=== PATIENT | female | born 1940 | race American Indian/Alaskan Native ===

== ENCOUNTER 2018-11-30 21:47 | Emergency (ER) | payer MEDICARE, OTHER, SELFPAY ==
[2018-11-30 21:47] VITALS: BP 51/33; PULSE 93; RESP 28; O2SAT 85
--- NOTE | 2018-11-30 21:57 | DI.RAD.S_ITS ---
PROCEDURE: XR CHEST 1V INDICATIONS: hypotensivelung cancer TECHNIQUE: One view of the chest was acquired. COMPARISON: [facility], CR, XR CHEST 1 VIEW, 10/10/2018, 11:35. [facility], CR, CHEST 1 VIEW, 03/10/2017, 16:46. FINDINGS: Surgical changes and devices: Right Port-A-Cath is present with distal tip projecting over the right atrial junction, unchanged. Lungs and pleura: The mild right effusion. Persistent right upper lobe/perihilar opacity is unchanged. Mild left effusion. Mediastinum: Mediastinal contours appear normal. Heart size is normal. Bones and chest wall: No suspicious bony lesions. Overlying soft tissues appear unremarkable. IMPRESSION: Mild right effusion slightly increased compared to prior exam. Minimal to mild left effusion. Unchanged right upper lobe/perihilar opacity. Dictated by: Lisa Ortega M.D. on 12/01/2018 at 7:48 Approved by: Lisa Ortega M.D. on 12/01/2018 at 7:51
[2018-11-30 21:58] VITALS: BP 56/47; PULSE 104; RESP 26; TEMP 35.6
[2018-11-30 22:00] VITALS: BP 40/15; PULSE 56; RESP 28; O2SAT 97
[2018-11-30] MEDS: SODIUM CHLORIDE 0.9% 1,000 ML 1000 ML IV (22:05)
--- NOTE | 2018-11-30 22:15 | ED.ABDPAIN ---
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 states that she was doing well yesterday and even this morning. He made her go get her influenza shot today at around noon. Patient went home and started to become very weak and confused and deteriorating. says that her speech is slurred concerned that there may be a stroke. She had numbness and tingling in both lower hand. She actually looks quite pale and has initial blood pressure of 50. Some nausea and vomiting. says that the vomit looks like all coffee grounds he attributed that to coffee was only thing she drank this morning. She has vomited and felt nauseous throughout the day apparently. She is unable to give me much history most history comes from family daughter and at bedside. Related Data Home Medications Medication Instructions Recorded Confirmed [CENTRUM SILVER] 1 tab PO QDAY #0 03/10/17 aspirin #0 03/10/17 cholecalciferol (vitamin D3) 1,000 unit PO QDAY #0 03/10/17 [Vitamin D3] felodipine 10 mg PO QDAY #0 03/10/17 fluticasone propionate [Flonase 1 spray INTRANASAL QDAY #0 03/10/17 Allergy Relief] hydrochlorothiazide 50 mg PO QDAY #0 03/10/17 lisinopril 20 mg PO BID #0 03/10/17 loratadine 10 mg PO QDAY PRN #0 03/10/17 metoprolol succinate [Toprol XL] 50 mg PO QDAY #0 03/10/17 naproxen sodium [Aleve] 220 mg PO BIDCC PRN #0 03/10/17 omeprazole 20 mg PO QDAY #0 03/10/17 Allergies Allergy/AdvReac Type Severity Reaction Status Date / Time No Known Allergies Allergy Uncoded 05/17/17 12:49 Review of Systems Review of Systems ROS Unobtainable: Unobtainable due to medical condition Patient History Medical History DVT (deep venous thrombosis) (Acute) Lung cancer (Acute) Social History marital status: household members: spouse Smoking Status: Never smoker Substance Use Type: does not use Exam Initial Vital Signs Initial Vital Signs: Vital Signs Pulse Rate 93 H 11/30/18 21:47 Respiratory Rate 28 H 11/30/18 21:47 Blood Pressure 51/33 L 11/30/18 21:47 Pulse Oximetry 85 L 11/30/18 21:47 Gen.: Week pale alert female HEENT: Head is atraumatic, dry mucous membranes, EOMI Neck: No meningeal signs neck is supple no JVD Lungs: Clear bilaterally no respiratory distress no tachypnea Cardiac: Regular rate no murmurs Abdomen: Slightly distended normal bowel sounds nontender soft Extremities: Moves all extremities peripheral pulses intact Neurologic: Awake can follow commands, no facial drooping sieve repairer strength equal bilaterally Course Orders Ordered: ED Orders 11/30/18 21:57 XR chest 1V Stat Blood Culture Stat 11/30/18 22:06 Complete Blood Count AUTO DIFF Stat Comprehensive Metabolic Panel Stat Discontinued Medications Sodium Chloride (Normal Saline 0.9%) 1,000 mls @ 1,000 mls/hr IV CONT ALEJANDRA Last Infusion: 11/30/18 23:17 Dose: 0 mls/hr Documented by: Admin: 11/30/18 22:05 Dose: 1,000 mls/hr Documented by: JOSEPH Consultations Consultation #1: Dr. Guo, on-call for surgery updated on patient's symptoms and test results. Please with no aggressive measures to be taken. Time: 22:26 Vital Signs Vital signs: Vital Signs - 8 hr 11/30/18 21:47 11/30/18 21:58 11/30/18 22:00 Temperature 96.1 F L Pulse Rate 93 H 104 H 56 L Respiratory Rate 28 H 26 H 28 H Blood Pressure 56/47 L Blood Pressure [Right Arm] 51/33 L 40/15 L Pulse Oximetry 85 L 97 11/30/18 23:00 11/30/18 23:50 Temperature Pulse Rate 100 H 102 H Respiratory Rate 38 H 44 H Blood Pressure Blood Pressure [Right Arm] 73/47 L 64/40 L Pulse Oximetry 100 99 MDM - Abdominal Pain Lab Data Attestation: I reviewed the patient's lab results. Result diagrams: 11/30/18 22:06 11/30/18 22:06 Labs: Lab Results 11/30/18 11/30/18 Range/Units 22:06 22:06 WBC 3.4 L (4.5-11.0) X10^3/uL RBC 1.48 L (4.0-5.2) X10^6/uL Hgb 4.8 L* (12.0-16.0) g/dL Hct 15.8 L* (36-46) % MCV 106.7 H (80-100) fL MCH 32.1 (26-34) PG MCHC 30.1 (30-36) % RDW 22.9 H (11.6-14.8) % Plt Count 80 L (150-400) X10^3/uL Neut % (Auto) 43.7 L (50-75) % Lymph % (Auto) 54.2 H (25-40) % [place] % (Auto) 1.6 L (3-14) % Eos % (Auto) 0.4 L (2-4) % Baso % (Auto) 0.1 (0-2) % Neut # (Auto) 1500 (6402-5675) /uL Lymph # (Auto) 1800 (9897-3445) /uL [place] # (Auto) 100 (0-900) /uL Eos # (Auto) 0 (0-450) /uL Baso # (Auto) 0 (0-100) /uL Sodium 142 (137-145) mmol/L Potassium 2.4 L* (3.4-5.1) mmol/L Chloride 128 H* (98-107) mmol/L Carbon Dioxide 7 L* (22-32) mmol/L BUN 18 H (7-17) mg/dL Creatinine 0.40 L (0.52-1.04) mg/dL Estimated GFR > 60.0 (>60) mL/min BUN/Creatinine Ratio 45.0 H (6-22) Glucose 97 (80-110) mg/dL Calcium 3.0 L* (8.4-10.2) mg/dL Total Bilirubin < 0.1 L (0.2-1.3) mg/dL AST 20 (14-36) IU/L ALT 12 (9-52) IU/L Alkaline Phosphatase 35 L (38-126) U/L Total Protein 2.2 L* (6.3-8.2) g/dL Albumin 1.0 L (3.5-5.0) g/dL Globulin 1.2 L (1.7-4.1) g/dL Albumin/Globulin Ratio 0.8 L (1.0-2.8) Imaging Data Chest x-ray: Attestation: I personally reviewed and interpreted this imaging study as follows: My impression: right pleural effusion with right along with right-sided port. No acute process MDM Narrative Medical decision making narrative: Patient was admitted to hospice however states that prior to arrival he did sign the paperwork provoking hospice. I touch base with hospice physician Dr. Levine, who was not very familiar with history at the top of her head. Wanted to make sure that hospice was revoked, which it was. Very jared conversation with and daughter at bedside about goals of care. is clearly upset and would like to know what is happening he felt that she was doing well yesterday and this morning. She does have a POL[employer] form, signed on 10/12/2018 for comfort measures only and no intervention. At this time they do agree with no CPR and no intubation all but still would like further workup. I have seen patient vomit coffee-ground like emesis. Hemoglobin confirms anemia, she likely has a bleeding gastric ulcer worsened by Eliquis. She was given a L of IV fluids and Protonix. IV fluid did help blood pressure she did become more responsive and was awake and more appropriate. She understood she was in critical condition. Blood pressure improved to systolic of 73. Electrolytes show a carbon dioxide of 7 patient is very acidotic all electrolytes are also all abnormal. I did discuss case briefly with surgery she is not a surgical candidate. Patient is comfort measures only no aggressive measures to be taken. I did discuss this all with family, at this time no blood transfusion no vasopressors. Patient will be made comfort measures she is wanting something to what her mouth and have what water which she is given. She appeared comfortable and not in pain. I initially talked withTaisha YOON about admitting for comfort measures which she did agree to While waiting for a bed upstairs patient became less responsive. I was called to bedside by nursing. Patient is not responsive no cardiac activity, no spontaneous respirations. Surrounded by multiple family members. TOD:00:44 12/01/18 [facility] has been contacted along the corner. Critical Care Time Critical Care Time Critical Care Time: Yes Total Critical Care Time: 45 Attestation: The high probability of a clinically significant, sudden or life threatening deterioration of the cardiovascular system(s) required my full and direct attention, intervention and personal management. The aggregate critical care time was 45 minutes. This time is in addition to time spent performing reported procedures but includes the following: x Data Review and interpretation x Patient assessment and monitoring of vital signs x Documentation x Medication orders and management Discharge Plan Departure Patient Disposition: Clinical Impression: Acute GI bleeding Lung cancer Qualifiers: Laterality: unspecified laterality Lung location: unspecified part of lung Qualified Code(s): C34.90 - Malignant neoplasm of unspecified part of unspecified bronchus or lung Discharge Date/Time: 12/01/18 01:35
--- NOTE | 2018-11-30 22:32 | PC.NURSE ---
Family states patient vomited some dark blood today. Patient has a dark ring of discoloration around her mouth. Patient opens her eyes to verbal stimulation, unable to follow any commands. Patient has been on hospice care since september for Lung Cancer. Patient states he recently signed a form to take her off of hospice.
--- NOTE | 2018-11-30 22:48 | PC.NURSE ---
Patient perking up after some IV fluids, resp rate increased to low 30's patient on 4lNC oxygen level 90%. Patient coughed up coffee ground sputum into tissue. Provider aware and at bedside
[2018-11-30 22:55] LABS: Basophils Absolute Auto 0 /uL (0-100); Basophils Percent Auto 0.1 % (0-2); Eosinophils Absolute Auto 0 /uL (0-450); Eosinophils Percent Auto 0.4 % (2-4); Lymphocytes Absolute Auto 1800 /uL (1100-4500); Lymphocytes Percent Auto 54.2 % (25-40); Mean Corpuscular HGB Conc 30.1 % (30-36); Mean Corpuscular Hemoglobin 32.1 PG (26-34); Mean Corpuscular Volume 106.7 fL (80-100); Monocytes Absolute Auto 100 /uL (0-900); Monocytes Percent Auto 1.6 % (3-14); Neutrophils Absolute Auto 1500 /uL (1500-7000); Neutrophils Percent Auto 43.7 % (50-75); Platelet Count 80 X10^3/uL (150-400); Red Blood Cell Count 1.48 X10^6/uL (4.0-5.2); Red Cell Distribution Width 22.9 % (11.6-14.8); White Blood Cell Count 3.4 X10^3/uL (4.5-11.0)
[2018-11-30 22:57] LABS: Alanine Aminotransferase 12 IU/L (9-52); Albumin Globulin Ratio 0.8 (1.0-2.8); Alkaline Phosphatase 35 U/L (38-126); Aspartate Aminotransferase 20 IU/L (14-36); Bilirubin Total < 0.1 mg/dL (0.2-1.3); Blood Urea Nitrogen 18 mg/dL (7-17); Estimated Glomerular Filt Rate > 60.0 mL/min (>60); Globulin 1.2 g/dL (1.7-4.1); Glucose 97 mg/dL (80-110); HEMOLYSIS < 15 (0-50); Sodium 142 mmol/L (137-145)
[2018-11-30 23:00] VITALS: BP 73/47; PULSE 100; RESP 38; O2SAT 100
[2018-11-30 23:00] LABS: Potassium 2.4 mmol/L (3.4-5.1)
[2018-11-30 23:01] LABS: Carbon Dioxide 7 mmol/L (22-32); Chloride 128 mmol/L (98-107)
[2018-11-30 23:02] LABS: Total Protein 2.2 g/dL (6.3-8.2)
[2018-11-30 23:12] LABS: Hemoglobin 4.8 g/dL (12.0-16.0)
[2018-11-30 23:13] LABS: Add Manual Diff / Slide Review SLIDE REVIEW; Hematocrit 15.8 % (36-46)
--- NOTE | 2018-11-30 23:17 | PC.NURSE ---
Patient sitting up right more lucid after liter of fluids. Family and provider at bedside to discuss at length labs and plan of care. Patient is comfort measures only according to POLST. Patient continues to spit up dark coffee ground sputum. Patient denies any pain.
[2018-11-30 23:50] VITALS: BP 64/40; PULSE 102; RESP 44; O2SAT 99
--- NOTE | 2018-12-01 01:33 | PC.NURSE ---
Pt with family all around, mouth care and sip of water given at 2330. Pt repositioned. Denies any needs or discomforts at this time.
--- NOTE | 2018-12-01 01:35 | PC.NURSE ---
0044: pt pronounced as by Dr. Polanco. Pt surrounded by family and spouse.
[2018-12-01 05:44] LABS: Anisocytosis 3+; Macrocytosis 1+
== END 2018-12-01 01:35 | disposition expired ==
PROVIDERS: Emergency Provider Emergency Medicine
DX: K92.2 Gastrointestinal hemorrhage, unspecified (principal); R11.10 Vomiting, unspecified; C34.90 Malignant neoplasm of unspecified part of unspecified bronchus or lung
CPT/HCPCS: 36415; 71045; 80053; 85025; 87040; 96360; 99284; 99291